=== PATIENT | male | born 1975 | race Caucasian/White ===

== ENCOUNTER → 2021-10-06 | Outpatient (CLI) | payer BC, SELFPAY ==
[2021-10-06 12:32] LABS: Anion Gap 6 (5-15); BUN 22 mg/dL (7-18); BUN/Creat Ratio 19.8 RATIO (10-20); Calcium,Total 9.4 mg/dL (8.5-10.1); Chloride 106 mmol/L (98-107); Cholesterol 220 mg/dL (200); Creatinine, Serum 1.11 mg/dL (0.70-1.30); EST Glomerular Filtration Rate 75 mL/min (>60); Est Glom Filt Rate - Afr Amer 91 mL/min (>60); Glucose 96 mg/dL (74-106); High Density Lipoprotein 51 mg/dL; Potassium 4.2 mmol/L (3.5-5.1); Sodium Level 141 mmol/L (136-145); Triglycerides 198 mg/dL; Very Low Density Lipoprotein 40 mg/dL (5-40)
== END | disposition home or self-care (01) ==
PROVIDERS: PCP Family Medicine; Referring Provider Nurse Practitioner Family; Visit Provider Nurse Practitioner Family
DX: Z13.220 Encounter for screening for lipoid disorders (principal); K21.9 Gastro-esophageal reflux disease without esophagitis; Z13.1 Encounter for screening for diabetes mellitus
CPT/HCPCS: 36415; 80048; 80061

== ENCOUNTER → 2021-10-08 | Outpatient (CLI) | payer BC, SELFPAY ==
[2021-10-10 11:20] LABS: H. PYLORI STOOL AG Negative (Negative)
== END | disposition home or self-care (01) ==
LOC: LABSPEC 10:14
PROVIDERS: PCP Family Medicine; Referring Provider Nurse Practitioner Family; Visit Provider Nurse Practitioner Family
DX: Z13.220 Encounter for screening for lipoid disorders (principal); Z13.1 Encounter for screening for diabetes mellitus; K21.9 Gastro-esophageal reflux disease without esophagitis
CPT/HCPCS: 87338

== ENCOUNTER 2022-05-04 07:28 | Day surgery (SDC) | payer BC, SELFPAY ==
[2022-05-04] MEDS: Lactated Ringers 1,000 ML 15 ML IV (07:50)
[2022-05-04 07:51] VITALS: BP 153/92; PULSE 92; RESP 18; TEMP 36.6; O2SAT 100; BMI 25.7
--- NOTE | 2022-05-04 08:30 | PCM.HP.STD ---
[facility] - General General Date of Admission: 05/04/22 Date of Service: 05/04/22 Chief Complaint: Screening colonoscopy HPI Narrative TYSON CEJA, is a 47 M who presents today for screening colonoscopy. He has a family history of polyps in his father. He has never had a colonoscopy. He does not have abdominal pain. He does not have any nausea, chest pain or shortness of breath. He denies any bleeding. He denies any change in bowel habits. Overall is in very good health. [facility] Medical History (Updated 04/28/22 @ 12:18 by Alem Joy) Alcohol use Gastric reflux GERD (gastroesophageal reflux disease) Kidney stones Wears glasses Home Medications fluticasone propionate 50 mcg/actuation nasal spray,suspension (Allergy Relief (fluticasone)) 1 spray intranasal DAILY 12/31/21 [History Last Taken Unknown] loratadine 10 mg tablet 10 mg PO DAILY 12/31/21 [History Last Taken Unknown] omeprazole 20 mg capsule,delayed release 20 mg PO DAILY 12/31/21 [History Last Taken Unknown] Allergy/AdvReac Type Severity Reaction Status Date / Time animal dander Allergy Itchy Verified 05/04/22 07:50 eyes,congestion Penicillins Allergy Hives Verified 05/04/22 07:50 pollen extracts Allergy Other Verified 05/04/22 07:50 tree nut Allergy Itchy mouth Verified 05/04/22 07:50 Family History (Updated 12/31/21 @ 07:45 by Gillian Ribeiro) Father Colon polyps Kidney stone Social History (Updated 12/31/21 @ 07:46 by Gillian Ribeiro) household members: spouse and children current occupational status: employed current occupation: Professor at [employer] Smoking Status: Never smoker ROS Review of Systems ROS Unobtainable: other Constitutional Constitutional: Denies fatigue, fever(s), poor appetite, weight gain or weight loss ENT HEENT: Denies mouth lesions Cardiovascular Cardiovascular: Denies abdominal bloating, abdominal edema or abdominal pain Respiratory/Chest Respiratory/Chest: Denies change in mental status, change in phlegm color, chest congestion or chest tightness Gastrointestinal Gastrointestinal: Denies belching, bloating, change in bowel habits, change in stool character, chewing difficulty, coffee ground emesis, constipation, cramping, diarrhea, dyspepsia, dysphagia, early satiety, excessive flatus, fecal incontinence, heartburn, hematemesis, hematochezia, hemorrhoids, loose stools, melena, nausea, odynophagia, rectal bleeding, tenesmus, vomiting or weight changes Genitourinary Genitourinary: Denies abdominal discomfort, burning urination or itching Musculoskeletal Musculoskeletal: Reports as per HPI; Denies muscle weakness or myalgias Integumentary Integumentary: Denies jaundice Neurologic Neurologic: Denies lack of coordination or weakness Psychiatric Psychiatric: Denies confusion, depression, memory loss, mood swings, paranoia or suicidal ideation Endocrine Endocrinology: Denies systems reviewed and no addt'l complaints, except as documented Hematologic/Lymphatic Hematologic/Lymphatic: Denies anemia, easy bleeding, easy bruising or lymphadenopathy Allergic/Immunologic Allergic/Immunologic: Denies systems reviewed and no addt'l complaints, except as documented Vital Signs Vital Signs Vital Signs: 05/04/22 07:51 05/04/22 07:51 Temperature 98 F Temperature Source Temporal Pulse Rate 92 Respiratory Rate 18 Respiratory Pattern Normal Blood Pressure 153/92 H Blood Pressure Mean 112 Blood Pressure Source Monitor Blood Pressure Position Semi-Fowlers Blood Pressure Location Right Arm Pulse Ox 100 Oxygen Delivery Method Room Air Weight Weight: 185 lb Body Mass Index (BMI) 25.7 Physical Exam Const alert General Appearance: cooperative Orientation / Consciousness: oriented to person HEENT hearing grossly normal bilaterally Head and Scalp: normal to inspection Face and Sinus: face symmetric Nose: external nose normal Mouth: oral and palatal mucosa normal Eyes conjunctivae normal General Eye: normal appearance of both eyes Neck full ROM General: normal visual inspection Lymph Lymphatic: no lymphadenopathy noted Chest inspection of chest normal and palpation of chest normal Chest: symmetrical chest wall rise Resp normal respiratory effort Effort and Inspection: able to speak in complete sentences Cardio regular rate GI non-distended Percussion: normal to percussion Rectal Exam: deferred Neuro Speech: speech normal Gait (Neuro): normal gait Assessment & Plan Assessment/Plan (1) Encounter for screening for malignant neoplasm of colon: PLAN: He will undergo a screening colonoscopy. He was explained alternatives, risk, benefits including not withstanding bleeding, infection, sepsis, perforation, need for emergent surgery and . He will have an ASA of 1.
--- NOTE | 2022-05-04 08:59 | OP.COLON_ITS ---
Patient Name: Luis Rodrigez Procedure Date: 05/04/2022 8:29 AM Date of : 1975 Age: 47 Procedure: Colonoscopy Indications: Screening for colorectal malignant neoplasm Providers: Librado Beard DO Medicines: Monitored Anesthesia Care Patient Profile: This is a 47 year old male. Refer to note in patient chart for documentation of history and physical. Last Colonoscopy: none. The patient's first colonoscopy is today. Complications: No immediate complications. Procedure: Pre-Anesthesia Assessment: - Prior to the procedure, a History and Physical was performed, and patient medications and allergies were reviewed. The risks and benefits of the procedure and the sedation options and risks were discussed with the patient. All questions were answered and informed consent was obtained. Patient identification and proposed procedure were verified by the physician in the pre-procedure area. Mental Status Examination: alert and oriented. Airway Examination: normal oropharyngeal airway and neck mobility. Respiratory Examination: clear to auscultation. CV Examination: normal. Prophylactic Antibiotics: The patient does not require prophylactic antibiotics. Prior Anticoagulants: The patient has taken no previous anticoagulant or antiplatelet agents. After reviewing the risks and benefits, the patient was deemed in satisfactory condition to undergo the procedure. The anesthesia plan was to use monitored anesthesia care (MAC). Immediately prior to administration of medications, the patient was re-assessed for adequacy to receive sedatives. The heart rate, respiratory rate, oxygen saturations, blood pressure, adequacy of pulmonary ventilation, and response to care were monitored throughout the procedure. The physical status of the patient was re-assessed after the procedure. After I obtained informed consent, the scope was passed under direct vision. Throughout the procedure, the patient's blood pressure, pulse, and oxygen saturations were monitored continuously. The pediatric colonoscope was introduced through the anus and advanced to the terminal ileum. The colonoscopy was performed without difficulty. The patient tolerated the procedure well. The quality of the bowel preparation was good. Scope In: 8:40:11 AM Scope Withdrawal Time 0 hours 9 minutes 54 seconds Scope Out: 8:54:01 AM Total Procedure Duration Time 0 hours 13 minutes 50 seconds Findings: The perianal and digital rectal examinations were normal. A few small-mouthed diverticula were found in the recto-sigmoid colon and sigmoid colon. The exam was otherwise without abnormality on direct and retroflexion views. Impression: - Diverticulosis in the recto-sigmoid colon and in the sigmoid colon. - The examination was otherwise normal on direct and retroflexion views. - No specimens collected. Recommendation: - Discharge patient to home. - Resume previous diet. - Continue present medications. - Await pathology results. - Repeat colonoscopy in 10 years for screening purposes. Procedure Code(s): --- Professional --- G0121, Colorectal cancer screening; colonoscopy on individual not meeting criteria for high risk CPT copyright 2017 [employer]. All rights reserved. The codes documented in this report are preliminary and upon motorcycle subassembly repairer review may be revised to meet current compliance requirements. Librado Beard DO 05/04/2022 8:58:54 AM This report has been signed electronically. Number of Addenda: 0 Note Initiated On: 05/04/2022 8:29 AM
[2022-05-04 09:00] VITALS: BP 128/88; BP 153/92; PULSE 74; RESP 16; O2SAT 98
--- NOTE | 2022-05-04 09:00 | OP.CCLET_ITS ---
05/04/2022 Keny Story [address] [place] [address] Re : Colonoscopy procedure for Luis Rodrigez Dear Dr. Story This procedure was performed on Wednesday, May 04, 2022. My impressions and recommendations are as follows: Impressions : - Diverticulosis in the recto-sigmoid colon and in the sigmoid colon. - The examination was otherwise normal on direct and retroflexion views. - No specimens collected. Recommendations : - Discharge patient to home. - Resume previous diet. - Continue present medications. - Await pathology results. - Repeat colonoscopy in 10 years for screening purposes. My findings are described in the full procedure note, which is enclosed. If I can be of further assistance, please feel free to contact me at . Sincerely, Librado Beard, 05/04/2022 8:58:54 AM This report has been signed electronically.
[2022-05-04 09:05] VITALS: BP 128/85; BP 153/92; PULSE 74; RESP 16; TEMP 36.2; O2SAT 95
[2022-05-04 09:10] VITALS: BP 114/89; BP 153/92; PULSE 72; RESP 16; O2SAT 97
[2022-05-04 09:15] VITALS: BP 114/83; BP 153/92; PULSE 60; RESP 16; TEMP 36.3; O2SAT 99
[2022-05-04 09:30] VITALS: BP 153/92
== END 2022-05-04 09:40 | disposition home or self-care (01) ==
LOC: EN 07:30 → AC 07:30
PROVIDERS: PCP Family Medicine; Referring Provider Family Medicine; Visit Provider Internal Medicine Gastroenterology
PROC: 0DJD8ZZ Inspection of Lower Intestinal Tract, Via Natural or Artificial Opening Endoscopic (ICD-10-PCS; CPT 45378; principal; 2022-05-04 08:25)
DX: Z12.11 Encounter for screening for malignant neoplasm of colon (principal); K57.30 Diverticulosis of large intestine without perforation or abscess without bleeding; Z79.899 Other long term (current) drug therapy; K21.9 Gastro-esophageal reflux disease without esophagitis; Z87.442 Personal history of urinary calculi
CPT/HCPCS: G0121; J7120; J2405

== ENCOUNTER 2022-10-24 16:31 | Emergency (ER) | payer BC, SELFPAY ==
[2022-10-24 16:33] VITALS: BP 174/94; PULSE 67; RESP 18; TEMP 36.6; O2SAT 97; BMI 26.2
--- NOTE | 2022-10-24 16:43 | EDS_ITS ---
<Statement entered by Bhargavi Manzanares MD - 10/24/22 22:38> I have personally performed a face to face assessment of the patient and have reviewed the SHERRIE Note. Patient presents secondary to forehead laceration. He states that he had looked away was he was opening the car door and the corner of the door caught him across the forehead. He is a superficial laceration with mild area of continued bleeding. Patient sitting upright in bed no acute distress. Head and neck examination reveals a linear superficial laceration across the mid forehead. Mild active bleeding. No C-spine tenderness. Heart is regular rate and rhythm. Neuro exam is unremarkable. Wound is cleansed and dressed. Wound is not full-thickness and does not require suture repair. Tetanus is up-to-date. HPI History of Present Illness Chief Complaint: Laceration Narrative Narrative: Patient presenting today with a laceration to his forehead that he got earlier today when he accidentally bumped his head on the car door. Patient reports he had a difficult time getting the bleeding to stop and came in to be evaluated. He is not on any blood thinners, tetanus is up-to-date, he denies any other injury. Patient did not lose consciousness. [facility] Medical History Alcohol use Gastric reflux GERD (gastroesophageal reflux disease) Kidney stones Wears glasses Home Medications loratadine 10 mg tablet 10 mg PO DAILY 12/31/21 [History Last Taken Unknown] omeprazole 20 mg capsule,delayed release 20 mg PO DAILY 12/31/21 [History Last Taken Unknown] Allergy/AdvReac Type Severity Reaction Status Date / Time animal dander Allergy Itchy Verified 10/24/22 16:33 eyes,congestion Penicillins Allergy Hives Verified 10/24/22 16:33 pollen extracts Allergy Other Verified 10/24/22 16:33 tree nut Allergy Itchy mouth Verified 10/24/22 16:33 Family History Father Colon polyps Kidney stone Social History household members: spouse and children current occupational status: employed 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 smoker ROS ROS ED Constitutional Constitutional ED: Denies chills or fever(s) Eyes Eyes: Denies change in vision Cardiovascular Cardiovascular: Denies chest pain Respiratory/Chest Respiratory/Chest: Denies cough or dyspnea Gastrointestinal Gastrointestinal: Denies abdominal pain, nausea or vomiting Musculoskeletal Musculoskeletal: Denies arthralgias or myalgias Integumentary Reports laceration Neurologic Neurologic: Denies headache(s) or weakness EXAM Physical Exam Const Vital Signs: 10/24/22 16:33 Temperature 97.8 F Temperature Source Temporal Pulse Rate 67 Respiratory Rate 18 Blood Pressure 174/94 H Blood Pressure Mean 120 Pulse Ox 97 Oxygen Delivery Method Room Air Positive well nourished, well developed and no apparent distress General Appearance ED: well developed HEENT Reports normocephalic and head/scalp atraumatic HEENT Narrative: 3 cm superficial laceration to the left side of patient's forehead. Mouth ED: Yes moist mucous membranes normal Eyes PERRL and EOMs intact bilaterally Neck full ROM and supple Chest Wall inspection of chest normal Resp normal respiratory effort and clear to auscultation bilaterally Cardio regular rate and regular rhythm GI soft to palpation, non-tender, non-distended and no masses Back/Spine normal ROM and normal to inspection Extremity normal to inspection and full ROM Neuro oriented x3, CN's II-XII intact bilaterally, moves all extremities, no focal motor deficits and no sensory deficits noted Sensorium / Orientation: awake and alert Psych mental status grossly normal and thought process normal PROC Procedures Lacerations Laceration: Length: 3 cm Depth: Skin Shape: Linear Prep: Chlorhexadine Laceration repair: Dermabond MDM MDM MDM Narrative Medical decision making narrative: Patient presenting today with a superficial laceration to the left side of his forehead that he got when he hit it against his car door earlier this afternoon. He is well-appearing and in no acute distress, vitals unremarkable aside from elevated pressure. Tetanus is up-to-date. The laceration is superficial and does not need to be sutured. Laceration was cleaned and skin glue was applied. Patient has been educated on signs of infection to look out for and reasons to return. He will be discharged home in stable condition and is comfortable with plan. Discharge Plan Triage Chief Complaint: Laceration ED Midlevel Provider: Wendy Stoner ED Provider: Bhargavi Manzanares Dx/Rx/DC Orders Clinical Impression: Laceration Instructions: ED Laceration: Skin Adhesive Prescriptions: No Action omeprazole 20 mg capsule,delayed release(DR/EC) 20 mg PO DAILY loratadine 10 mg tablet 10 mg PO DAILY Primary Care Provider: Keny Story Referrals: Keny Story MD [Primary Care Provider] - 3-5 Days if not improving Activity Restrictions/Additional Instructions: Please follow-up with your PCP or return for any signs of infection. Disposition Disposition: Home, Self Care Discharge Date/Time: 10/24/22 17:33
== END 2022-10-24 17:33 | disposition home or self-care (01) ==
LOC: ED 17:25
PROVIDERS: Emergency Provider Emergency Medicine; PCP Family Medicine; Visit Provider Emergency Medicine
DX: S01.81XA Laceration without foreign body of other part of head, initial encounter (principal); K21.9 Gastro-esophageal reflux disease without esophagitis; W22.8XXA Striking against or struck by other objects, initial encounter
CPT/HCPCS: 12013; 99282

== ENCOUNTER → 2023-08-31 | Outpatient (CLI) | payer BC, SELFPAY ==
[2023-08-31 10:31] LABS: Cholesterol 180 mg/dL (200); High Density Lipoprotein 47 mg/dL; PSA,Total - Annual Screen 0.64 ng/mL (0.00-4.00); Triglycerides 223 mg/dL; Very Low Density Lipoprotein 45 mg/dL (5-40)
== END | disposition home or self-care (01) ==
LOC: MTLAB 08:05
PROVIDERS: PCP Family Medicine; Referring Provider Family Medicine; Visit Provider Family Medicine
DX: Z13.220 Encounter for screening for lipoid disorders (principal); Z12.5 Encounter for screening for malignant neoplasm of prostate
CPT/HCPCS: 36415; 80061; 84153; G0103

== ENCOUNTER → 2024-10-17 | Outpatient (CLI) | payer BC, SELFPAY ==
[2024-10-17 13:14] LABS: Cholesterol 188 mg/dL (<=200); Low Density Lipoprotein Calc. 104 mg/dL; PSA,Total - Annual Screen 0.63 ng/mL (0.02-4.00); Triglycerides 131 mg/dL; Very Low Density Lipoprotein 26 mg/dL (5-40); cholesterol:hdl ratio screen 3.26
== END | disposition home or self-care (01) ==
LOC: MTLAB 10:19
PROVIDERS: PCP Family Medicine; Referring Provider Family Medicine; Visit Provider Family Medicine
DX: Z13.220 Encounter for screening for lipoid disorders (principal); Z12.5 Encounter for screening for malignant neoplasm of prostate
CPT/HCPCS: 36415; 80061; 84153; G0103